=== PATIENT | female | born 1965 | race Caucasian/White ===

== ENCOUNTER → 2020-12-17 | Day surgery (SDC) | payer OTHER ==
[~2020-12-17] MED LIST: ACETAMINOPHEN500 M1 PO; COLACE100 MG PO; MIRALAX17 GM PO; MOTRIN600 MG PO; OXY-IR 5MG5 MG PO; PRILOSEC20 MG PO; VITAMIN D-40010 MCG PO; ZYRTEC10 M3 PO
== END | disposition home or self-care (01) ==
LOC: FAS 10:22
DX: K64.2 Third degree hemorrhoids (principal); K64.4 Residual hemorrhoidal skin tags; K21.9 Gastro-esophageal reflux disease without esophagitis; K58.9 Irritable bowel syndrome, unspecified; K62.1 Rectal polyp; F17.200 Nicotine dependence, unspecified, uncomplicated; M19.90 Unspecified osteoarthritis, unspecified site; G43.909 Migraine, unspecified, not intractable, without status migrainosus; Z20.822 Contact with and (suspected) exposure to COVID-19; Z97.5 Presence of (intrauterine) contraceptive device; Z98.51 Tubal ligation status; Z98.890 Other specified postprocedural states
CPT/HCPCS: J0690; J1100; J1644; J2250; J2704; J3010; J7120